=== PATIENT | male | born 1945 | race Caucasian/White ===

== ENCOUNTER 2024-04-07 13:10 | Outpatient (CLI) | payer OTHER | END 2024-04-07 13:11 | disposition home or self-care (01) | LOC: BICMAMMO 13:10 | PROVIDERS: ATTEND Family Medicine | DX: M85.851 Other specified disorders of bone density and structure, right thigh (principal); M85.852 Other specified disorders of bone density and structure, left thigh | CPT/HCPCS: 77080 ==